=== PATIENT | male | born 1995 | race Hispanic/Latino ===

== ENCOUNTER 2022-08-09 06:34 | Day surgery (SDC) | payer BC, OTHER ==
[2022-08-08 10:49] VITALS: BP 145/70
[2022-08-08 11:15] LABS: BASOPHILS % (AUTO) 0.5 % (0.0-5.0); EOSINOPHILS % (AUTO) 0.8 % (0.0-8.0); HEMATOCRIT 44.1 % (42-54); LYMPHOCYTES % (AUTO) 35.1 % (21.0-51.0); MEAN CORPUSCULAR HEMOGLOBIN 28.7 pg (27.0-33.0); MEAN CORPUSCULAR HGB CONC 34.5 g/dL (32.0-36.0); MEAN CORPUSCULAR VOLUME 83.2 fL (79-99); NEUTROPHILS % (AUTO) 56.1 % (40.0-77.0); PLATELET COUNT (AUTO) 209 K/uL (130-400); RED CELL DISTRIBUTION WIDTH 12.6 % (11.0-15.5); WHITE BLOOD COUNT (AUTO) 6.3 K/uL (4.8-10.8)
[2022-08-08 13:40] LABS: CREATININE 0.7 mg/dL (0.5-1.5); POTASSIUM 3.8 mmol/L (3.5-5.1)
[2022-08-09] VITALS (20 sets, daily range): BP systolic 97–144; BP diastolic 49–89
[~2022-08-09] VITALS: Ht 170.2 cm; Wt 96.6 kg
[~2022-08-09 06:34] MED LIST: CEFAZOLIN SODIUM 1 GM VIAL ONE
[2022-08-09] MEDS: CEFAZOLIN SODIUM 1 GM VIAL IVP ONE ×2 (06:57→10:18)
[2022-08-09] MEDS: LACTATED RINGERS 1000ML 1,000 ML IV SCH ×2 (06:57→11:00)
[2022-08-09] MEDS ORDERED: LIDOCAINE PF 100MG/5ML (2%) SYRINGE 5ML ONE (07:42)
[2022-08-09] MEDS ORDERED: DEXAMETHASONE SOD PHOSPHATE 10MG/ML 1ML VIAL ONE (07:42)
[2022-08-09] MEDS ORDERED: MIDAZOLAM HCL 1 MG/ML 2ML VIAL ONE (07:43)
[2022-08-09] MEDS ORDERED: ONDANSETRON 4MG INJ ONE (07:43)
[2022-08-09] MEDS ORDERED: PROPOFOL 10 MG/ML 20ML VIAL IV ONE (07:43)
[2022-08-09] MEDS ORDERED: FENTANYL CITRATE PF 50 MCG/1 ML 2ML VIAL ONE (07:43)
[2022-08-09] MEDS ORDERED: LIDOCAINE HCL-MPF 2% 10ML AMP IJ ONE (07:47)
[2022-08-09] MEDS ORDERED: KETAMINE 50MG/ML SYRINGE 50 MG/ML DISP.SYRIN IV ONE (07:57)
[2022-08-09] MEDS ORDERED: MORPHINE PF 100MG/10ML AMP IV ONE (07:57)
[2022-08-09] MEDS ORDERED: ROPIVACAINE 0.5% 5MG/ML 30ML IJ ONE (10:48)
[2022-08-09] MEDS ORDERED: DiphenhydrAMINE HCL 50 MG/ML VIAL ONE (11:31)
== END 2022-08-09 15:00 | disposition home or self-care (01) ==
LOC: DAH 06:34
PROVIDERS: ATTEND Orthopaedic Surgery
DX: S83.512A Sprain of anterior cruciate ligament of left knee, initial encounter (principal); Z20.822 Contact with and (suspected) exposure to COVID-19; S83.242A Other tear of medial meniscus, current injury, left knee, initial encounter; M22.42 Chondromalacia patellae, left knee; G89.18 Other acute postprocedural pain; E66.9 Obesity, unspecified; Z68.31 Body mass index [BMI] 31.0-31.9, adult; Z79.899 Other long term (current) drug therapy; X58.XXXA Exposure to other specified factors, initial encounter; Y93.89 Activity, other specified; Y92.89 Other specified places as the place of occurrence of the external cause; Y99.8 Other external cause status
CPT/HCPCS: 80048; 85025; 87426; 36415; 64447; 29888; 73560; 76942; A4663; J7030; A4649 ×3; J7120; J1200; J3010; J0690 ×3; J1100; J2001; J2250; J2704; J2274; J2405; J2795; J3490 ×2; A6223; G0168; A4930 ×2; C1776; C1713 ×2; C1763; A5120; A4215; A4223; A4222; A4221; A6450